=== PATIENT | male | born 1970 | race Caucasian/White ===

== ENCOUNTER 2017-01-10 11:36 | Emergency (ER) | payer OTHER ==
[~2017-01-10] VITALS: Ht 188 cm; Wt 109.8 kg
[2017-01-10] MEDS ORDERED: MELO15TA4 PO (11:45)
[2017-01-10] MEDS ORDERED: VIAG100T PO (11:45)
[2017-01-10] MEDS ORDERED: PRED20TA PO (12:56)
[2017-01-10] MEDS ORDERED: BENA25TA9 PO (12:56)
[2017-01-10 13:08] VITALS: BP 122/77
[2017-01-11] MEDS ORDERED: PRED20TA PO (19:52)
--- NOTE | 2017-01-13 15:50 | ED PDOC ---
Post-Departure Follow-Up no PCP - radiology report - certified letter sent Chetna Castillo MD January 13, 2017 15:50
== END 2017-01-10 13:11 | disposition home or self-care (01) ==
LOC: M ED 13:06
DX: T78.40XA Allergy, unspecified, initial encounter (principal); X58.XXXA Exposure to other specified factors, initial encounter; Y92.89 Other specified places as the place of occurrence of the external cause; Y93.89 Activity, other specified; Y99.8 Other external cause status; Z79.899 Other long term (current) drug therapy

== ENCOUNTER 2017-01-11 15:55 | Emergency (ER) | payer OTHER ==
[~2017-01-11] VITALS: Ht 188 cm; Wt 110.2 kg
[~2017-01-11 15:55] MED LIST: BENA25TA9 PO; MELO15TA4 PO; PRED20TA PO; VIAG100T PO
[2017-01-11] MEDS ORDERED: diphenhydrAMINE INJ 50MG/ML VIAL (J1200) IV ONE (16:45)
[2017-01-11] MEDS ORDERED: methylPREDNISolone INJ 125 MG/2 ML VIAL (J2930) IV ONE (16:45)
[2017-01-11] MEDS ORDERED: FAMOTIDINE INJ 20MG/2ML VIAL (S0028) IVP ONE (16:45)
[2017-01-11 17:22] LABS: BASO % 0.5 % (0.0-1.0); EOS # 0.1 K/mm3 (0.0-0.50); EOS % 1.1 % (0.0-3.0); LARGE UNSTAINED CELL # 0.1 K/mm3 (0.0-0.4); LARGE UNSTAINED CELL % 1.7 % (0.0-4.0); LYMPH # 1.5 K/mm3 (1.5-4.5); MEAN CORPUSCULAR HEMOGLOBIN 31.8 pg (27.0-33.0); MEAN CORPUSCULAR HGB CONC 35.4 g/dl (32.0-36.5); MEAN CORPUSCULAR VOLUME 89.9 fl (80.0-96.0); MONO # 0.4 K/mm3 (0.0-0.8); MONO % 5.2 % (0.0-5.0); NEUTROPHILS # 5.1 K/mm3 (1.8-7.7); NEUTROPHILS % 70.5 % (36.0-66.0); PLATELET COUNT, AUTOMATED 158 k/mm3 (150-450); RED CELL DISTRIBUTION WIDTH 11.8 % (11.5-14.5); WHITE BLOOD COUNT 7.2 K/mm3 (4.0-10.0)
[2017-01-11 17:38] LABS: ANION GAP 8 MEQ/L (8-16); BLOOD UREA NITROGEN 12 MG/DL (7-18); CARBON DIOXIDE LEVEL 25 MEQ/L (21-32); CHLORIDE LEVEL 103 MEQ/L (98-107); CREATININE FOR GFR 0.96 MG/DL (0.70-1.30); GLOMERULAR FILTRATION RATE > 60.0 (>60); GLUCOSE, FASTING 100 MG/DL (70-105); POTASSIUM SERUM 3.8 MEQ/L (3.5-5.1); SODIUM LEVEL 136 MEQ/L (136-145)
[2017-01-11 17:41] LABS: ALBUMIN 3.6 GM/DL (3.2-5.2); ALBUMIN/GLOBULIN RATIO 1.03 (1.00-1.93); BILIRUBIN,DIRECT 0.2 MG/DL (0.0-0.2); BILIRUBIN,TOTAL 1.3 MG/DL (0.2-1.0); TOTAL PROTEIN 7.1 GM/DL (6.4-8.2)
[2017-01-11] MEDS ORDERED: diphenhydrAMINE INJ 50MG/ML VIAL (J1200) IV STA (18:51)
[2017-01-11] MEDS ORDERED: ISOVUE-370 76% 100ML VIAL (Q9967) As Ordered ONE (18:54)
[2017-01-11] MEDS ORDERED: PRED20TA PO (19:52)
[2017-01-11 20:08] VITALS: BP 142/83
--- NOTE | 2017-01-12 04:39 | REP ---
Clinical: Chest pain and shortness of breath. Technique: Axial contrast enhanced images from the thoracic inlet to the upper abdomen using 100 ml Isovue 370 intravenous contrast material with multiplanar re-formations. Findings: Satisfactory enhancement of the pulmonary vasculature is achieved and no filling defects are identified to suggest pulmonary embolus. Further evaluation of the mediastinum demonstrates normal thoracic aorta, heart and pericardium. Mild bibasilar atelectasis noted without focal consolidation, effusion or pneumothorax. Tracheobronchial tree is patent. No obvious nodule or mass lesion is identified. Prominent mediastinal lymph nodes noted with right hilar lymph node up to 18 mm short axis diameter. Surrounding musculoskeletal structures intact Impression: 1. No evidence for pulmonary embolus. 2. Mild bibasilar atelectasis and mild prominent mediastinal/right hilar adenopathy may warrant follow-up examination at 3-6 months. Signed by Beka Navarrete MD 01/12/2017 04:30 A
--- NOTE | 2017-01-12 09:51 | REP ---
CHEST, TWO VIEWS: HISTORY: Cough. COMPARISON: 12/13/2013 The lungs are clear. The heart is normal in size. The pulmonary vasculature is normal in appearance. The bony structure is intact. IMPRESSION: No acute disease. Signed by Robbie Porter MD 01/12/2017 09:55 A
--- NOTE | 2017-01-13 05:50 | ECGEPIP ---
Stationary ECG Study [facility] - ED Test Date: 2017-01-11 Pat Name: BEN DELGADO Department: Room: - Gender: M Nurse Practitioner Hospitalist: ken : 1970 Requested By: JYOTHI Martinez Order Number: [id number] Reading MD: Anish Craven Measurements Intervals [place] Rate: 86 P: 37 ME: 156 QRS: 9 QRSD: 86 T: 29 QT: 334 QTc: 401 Interpretive Statements SINUS RHYTHM WITH OCCASIONAL VENTRICULAR PREMATURE COMPLEXES NO PRIORS Electronically Signed On 01-13-2017 5:50:16 EDT by Anish Craven
== END 2017-01-11 20:36 | disposition home or self-care (01) ==
LOC: M ED 16:39
DX: T50.B95A Adverse effect of other viral vaccines, initial encounter (principal); X58.XXXA Exposure to other specified factors, initial encounter; Y92.89 Other specified places as the place of occurrence of the external cause; Y93.89 Activity, other specified; Y99.8 Other external cause status; Z79.52 Long term (current) use of systemic steroids; Z79.899 Other long term (current) drug therapy
CPT/HCPCS: 36415; 71020; 71275; 80048; 80076; 82550; 82553; 85025; 85379; 93005; 93041; 94760; 96374; 96375; 96376; 99285; J1200; J2930; Q9967

== ENCOUNTER 2018-03-13 22:46 | Emergency (ER) | payer OTHER ==
[2018-03-14] MEDS: LIDOCAINE 2% MDV 20 ML VIAL SC (00:19)
== END 2018-03-14 00:30 | disposition home or self-care (01) ==
LOC: M ED 22:46
DX: S91.115A Laceration without foreign body of left lesser toe(s) without damage to nail, initial encounter (principal); W22.8XXA Striking against or struck by other objects, initial encounter; Y92.098 Other place in other non-institutional residence as the place of occurrence of the external cause
CPT/HCPCS: 12001

== ENCOUNTER 2019-02-25 10:00 | Emergency (ER) | payer OTHER ==
[~2019-02-25] VITALS: Ht 188 cm; Wt 110.2 kg
[2019-02-25 10:00] VITALS: BP 121/77
[~2019-02-25 10:00] MED LIST changes: +BENA25TA10 PO; -BENA25TA9 PO; +MELO15TA28 PO; -MELO15TA4 PO
[2019-02-25] MEDS ORDERED: dayquil (10:05)
[2019-02-25] MEDS ORDERED: CLEO300C2 PO (10:13)
== END 2019-02-25 10:19 | disposition home or self-care (01) ==
LOC: M ED 10:00
DX: L03.111 Cellulitis of right axilla (principal); Z79.1 Long term (current) use of non-steroidal anti-inflammatories (NSAID)

== ENCOUNTER 2019-02-27 06:14 | Inpatient (IN) | payer OTHER ==
[~2019-02-27] VITALS: Ht 188 cm; Wt 109.5 kg
[~2019-02-27 06:14] MED LIST changes: +CLEO300C2 PO; +dayquil
[2019-02-27] MEDS ORDERED: ACET-683 PO (06:22)
[2019-02-27] MEDS ORDERED: IBUP80TA PO ×2 (06:22→09:47)
[2019-02-27] MEDS ORDERED: RA M10TA PO (06:22)
[2019-02-27] MEDS ORDERED: VANCOMYCIN HCL 1,000 MG, VIAL MATE ADAPTER 1 EACH in D5W 250 ML IV ONE (07:00)
[2019-02-27] MEDS ORDERED: IBUPROFEN 800 MG TAB PO ONE (07:00)
[2019-02-27] MEDS ORDERED: LIDOCAINE 1% MDV 20ML VIAL IM ONE (07:00)
[2019-02-27 07:32] LABS: BASO # 0.1 10^3/uL (0.0-0.2); BASO % 0.5 % (0.0-1.0); EOS # 0.1 10^3/uL (0.0-0.50); HEMATOCRIT 40.6 % (42.0-52.0); HEMOGLOBIN 14.2 g/dl (13.5-17.5); LYMPH # 1.6 10^3/uL (1.5-4.5); LYMPH % 12.6 % (24.0-44.0); MEAN CORPUSCULAR HEMOGLOBIN 32.2 pg (27.0-33.0); MEAN CORPUSCULAR VOLUME 92.1 fl (80.0-96.0); MONO # 1.5 10^3/uL (0.0-0.8); MONO % 11.3 % (0.0-5.0); NEUTROPHILS # 9.6 10^3/uL (1.8-7.7); NEUTROPHILS % 74.2 % (36.0-66.0); PLATELET COUNT, AUTOMATED 195 10^3/uL (150-450); RED BLOOD COUNT 4.41 10^6/uL (4.30-6.10); WHITE BLOOD COUNT 12.9 10^3/uL (4.0-10.0)
[2019-02-27 07:55] LABS: BLOOD UREA NITROGEN 16 MG/DL (7-18); CALCIUM LEVEL 8.5 MG/DL (8.5-10.1); CARBON DIOXIDE LEVEL 27 MEQ/L (21-32); CHLORIDE LEVEL 107 MEQ/L (98-107); CREATININE FOR GFR 1.02 MG/DL (0.70-1.30); GLOMERULAR FILTRATION RATE > 60.0 (>60); GLUCOSE, FASTING 106 MG/DL (70-100); POTASSIUM SERUM 4.2 MEQ/L (3.5-5.1); SODIUM LEVEL 137 MEQ/L (136-145)
[2019-02-27] MEDS ORDERED: ONDANSETRON 4MG/2ML VIAL (J2405) IV ONE (08:15)
[2019-02-27] MEDS ORDERED: MORPHINE 4 MG/ML 1ML VIAL/SYRINGE (J2270) IV PRN (08:15)
[2019-02-27] MEDS ORDERED: ACET-839 PO (09:47)
[2019-02-27] MEDS ORDERED: CLEO300C2 PO (09:47)
[2019-02-27] MEDS ORDERED: MELA10TA2 PO (09:49)
[2019-02-27] MEDS ORDERED: MELA10CA PO (09:50)
[2019-02-27] MEDS ORDERED: LOPE1CAP5 PO (09:51)
--- NOTE | 2019-02-27 10:55 | HPEPDOC ---
General Date of Admission 02/27/2019 Date of Service: Feb 27, 2019 Attending Physician: FAM MARTINEZ MD Chief Complaint The patient is a 48-year-old male admitted with a reason for visit of Abscess Left Arm. History of Present Illness 48 years old male with no past medical history presented with swelling and abscess of left arm. He had come to ER 2 days ago was started on clindamycin but did not improve and found a hurry follow smelling discharge on his bed sheet and decided to come back. There is being admitted for IV antibiotics after I&D was performed Home Medications Scheduled Clindamycin Hcl (Cleocin HCl) 300 Mg Capsule, 300 MG PO TID, (Reported) STARTED 02/25/19 X 10 DAYS Melatonin (Melatonin) 10 Mg Capsule, 10 MG PO QHS, (Reported) Scheduled PRN Acetaminophen (Acetaminophen) 500 Mg Tablet, 1,000 MG PO Q6H PRN for PAIN, ( Reported) Ibuprofen (Ibuprofen) 800 Mg Tablet, 800 MG PO TID PRN for PAIN, (Reported) Loperamide HCl (Loperamide) 2 Mg Capsule, 2 MG PO PRN PRN for DIARRHEA, (Reported) Allergies Coded Allergies: erythromycin base (Verified Adverse Reaction, Intermediate, " lethargy", 02/25/19) Past Medical History Medical History None Surgical History None Family History Significant Family History: No pertinent family hx Social History * Smoker: Denies Alcohol: Denies Drugs: denies A-FIB/CHADSVASC A-FIB History Current/History of A-Fib/PAF?: No Review of Systems Constitutional: Reports: Fever Eyes: Denies: Pain, Vision change, Conjunctivae inflammation, Eyelid inflammation, Redness, Other ENT: Denies: Head Aches, Ear Pain, Dysphagia, Sinus Congestion, Post Nasal Drip, Sore Throat, Epistaxis, Other Symptoms Skin: Reports: Other (left axilla abscess) Pulmonary: Denies: Dyspnea, Cough, Pleuritic Chest Pain, Other Symptoms Cardiovascular: Denies: Chest Pain, Palpitations, Orthopnea, Paroxysmal Noc. Dyspnea, Edema, Lt Headedness, Other Symptoms Gastrointestinal: Denies: Nausea, Vomiting, Abdominal Pain, Diarrhea, Cons tipation, Melena, Hematochezia, Other Symptoms Genitourinary: Denies: Dysuria, Frequency, Incontinence, Hematuria, Retention, Other Symptoms Hematologic: Denies: Bruising, Bleeding Excessively, Petecchia, Purpura, Enlarged Lymph Nodes, Other Hematologic Endocrine: Denies: Polydipsia, Polyphagia, Polyuria, Heat Intolerance, Cold Intolerance, Other Endocrine Sx Musculoskeletal: Denies: Neck Pain, Back Pain, Shoulder Pain, Arm Pain, Hand Pain, Leg Pain, Foot Pain, Joint Pain, Muscle Pain, Spasms, Other Symptoms Neurological: Denies: Weakness, Numbness, Incoordination, Change in speech, Confusion, Seizures, Other Symptoms Psych: Denies: Mood Normal, Anxiety, Depression, Memory Issues, Thoughts of Self Harm, Anger, Thoughts of Harming Other, Other Psych Physical Examination General Exam: Positive: Alert, Cooperative Eye Exam: Positive: PERRLA ENT Exam: Positive: Atraumatic, Mucous membr. moist/pink Neck Exam: Positive: Supple Chest Exam: Positive: Clear to auscultation, Normal air movement Heart Exam: Positive: Rate Normal, Normal S1, Normal S2 Abdomen Exam: Positive: Normal bowel sounds, Soft Skin Exam: Positive: Nl turgor and temperature Neuro Exam: Positive: Normal Speech, Cranial Nerves 3-12 NL, Reflexes 2+ Psych Exam: Positive: Mental status NL, Mood NL, Oriented x 3 Vital Signs Vital Signs Date Time Temp Pulse Resp B/P (MAP) Pulse Ox O2 Delivery O2 Flow Rate FiO2 02/27/19 08:20 15 02/27/19 06:41 02/27/19 06:16 100.4 89 95 Room Air Laboratory Data Labs 24H Laboratory Tests 2 02/27/19 07:19: Immature Granulocyte % (Auto) 0.4, White Blood Count 12.9H, Red Blood Count 4.41, Hemoglobin 14.2, Hematocrit 40.6L, Mean Corpuscular Volume 92.1, Mean Corpuscular Hemoglobin 32.2, Mean Corpuscular Hemoglobin Concent 35.0, Red Cell Distribution Width 11.9, Platelet Count 195, Neutrophils (%) (Auto) 74.2H, Lymphocytes (%) (Auto) 12.6L, Monocytes (%) (Auto) 11.3H, Eosinophils (%) (Auto) 1.0, Basophils (%) (Auto) 0.5, Neutrophils # (Auto) 9.6H, Lymphocytes # (Auto) 1.6, Monocytes # (Auto) 1.5H, Eosinophils # (Auto) 0.1, Basophils # (Auto) 0.1, Nucleated Red Blood Cells % (auto) 0.0, Anion Gap 3L, Glomerular Filtration Rate > 60.0, Lactic Acid Level 1.0, Blood Urea Nitrogen 16, Creatinine 1.02, Sodium Level 137, Potassium Level 4.2, Chloride Level 107, Carbon Dioxide Level 27, Calcium Level 8.5 CBC/BMP Laboratory Tests 02/27/19 07:19 Red Blood Count 4.41, Mean Corpuscular Volume 92.1, Mean Corpuscular Hemoglobin 32.2, Mean Corpuscular Hemoglobin Concent 35.0, Red Cell Distribution Width 11.9, Neutrophils (%) (Auto) 74.2 H, Lymphocytes (%) (Auto) 12.6 L, Monocytes (%) (Auto) 11.3 H, Eosinophils (%) (Auto) 1.0, Basophils (%) (Auto) 0.5, Neutrophils # (Auto) 9.6 H, Lymphocytes # (Auto) 1.6, Monocytes # (Auto) 1.5 H, Eosinophils # (Auto) 0.1, Basophils # (Auto) 0.1, Calcium Level 8.5 Microbiology Microbiology 02/27/19 Blood Culture, Received Pending 02/27/19 Gram Stain - Final, Resulted 02/27/19 Wound Culture, Resulted Pending Problems (1) Cellulitis of right axilla Status: Acute Problem Text: Admit to [facility] floor Patient had I&D done ED Discharge sent for cultures. Please follow cultures. Once available Will start patient on ceftroline 600 mg IV every 12 hours for broad-spectrum coverage , Tylenol and Percocet when necessary for pain DVT prophylaxis with Lovenox Monitor clinical course (2) Abscess Status: Acute Plan / VTE VTE Prophylaxis Ordered?: Yes FAM MARTINEZ MD Feb 27, 2019 10:55
[2019-02-27] MEDS ORDERED: ENOXAPARIN 40 MG/0.4 ML SYRINGE (J1650) SC ONE (11:00)
[2019-02-27] MEDS ORDERED: CEFTAROLINE FOSAMIL 600 MG in D5W MINI-BAG PLUS 50 ML IV ONE (12:00)
[2019-02-27 13:09] VITALS: BP 117/69
[2019-02-27] MEDS: CEFTAROLINE FOSAMIL 600 MG in D5W MINI-BAG PLUS 50 ML IV SCH (14:35)
[2019-02-27 15:42] VITALS: BP 115/69
[2019-02-27] MEDS: ACETAMINOPHEN TAB 650MG DOSE (2X325MG) PO PRN (15:57)
[2019-02-27] MEDS ORDERED: IBUPROFEN 600 MG TAB PO PRN (19:15)
[2019-02-27 20:00] VITALS: BP 103/52
[2019-02-27] MEDS: PERCOCET 5MG/325MG TAB PO PRN (21:15)
[2019-02-28] VITALS: BP 116/59
[2019-02-28] MEDS: CEFTAROLINE FOSAMIL 600 MG in D5W MINI-BAG PLUS 50 ML IV SCH ×2 (02:16→14:54)
[2019-02-28 06:57] LABS: HEMATOCRIT 41.5 % (42.0-52.0); HEMOGLOBIN 14.1 g/dl (13.5-17.5); MEAN CORPUSCULAR HEMOGLOBIN 31.5 pg (27.0-33.0); MEAN CORPUSCULAR VOLUME 92.8 fl (80.0-96.0); PLATELET COUNT, AUTOMATED 190 10^3/uL (150-450); RED BLOOD COUNT 4.47 10^6/uL (4.30-6.10); WHITE BLOOD COUNT 10.6 10^3/uL (4.0-10.0)
[2019-02-28 07:22] LABS: ALBUMIN 3.2 GM/DL (3.2-5.2); ALT/SGPT 28 U/L (12-78); BLOOD UREA NITROGEN 11 MG/DL (7-18); CALCIUM LEVEL 9.2 MG/DL (8.5-10.1); CARBON DIOXIDE LEVEL 30 MEQ/L (21-32); CHLORIDE LEVEL 106 MEQ/L (98-107); CREATININE FOR GFR 1.06 MG/DL (0.70-1.30); GLOMERULAR FILTRATION RATE > 60.0 (>60); GLUCOSE, FASTING 94 MG/DL (70-100); POTASSIUM SERUM 4.6 MEQ/L (3.5-5.1); SODIUM LEVEL 139 MEQ/L (136-145)
[2019-02-28 08:00] VITALS: BP 114/62
[2019-02-28] MEDS: ENOXAPARIN 40 MG/0.4 ML SYRINGE (J1650) SC SCH (09:00)
[2019-02-28 13:46] VITALS: BP 121/77
[2019-02-28] MEDS: ACETAMINOPHEN TAB 650MG DOSE (2X325MG) PO PRN (17:47)
[2019-02-28 20:00] VITALS: BP 114/67
--- NOTE | 2019-02-28 20:06 | IPNPDOC ---
Text Note Date of Service The patient was seen on 02/28/19. NOTE Pt was seen and examined at bedside. dressing changed with RN. draining purulent discharge. Denies any fever, malaise, SOB, cough. Physical Examination General Exam: Positive: Alert, Cooperative Eye Exam: Positive: PERRLA ENT Exam: Positive: Atraumatic, Mucous membr. moist/pink Neck Exam: Positive: Supple Chest Exam: Positive: Clear to auscultation, Normal air movement Heart Exam: Positive: Rate Normal, Normal S1, Normal S2 Abdomen Exam: Positive: Normal bowel sounds, Soft Skin Exam: Positive: Nl turgor and temperature Neuro Exam: Positive: Normal Speech, Cranial Nerves 3-12 NL, Reflexes 2+ Psych Exam: Positive: Mental status NL, Mood NL, Oriented x 3 Vital Signs Date Time Temp Pulse Resp B/P (MAP) Pulse Ox O2 Delivery O2 Flow Rate FiO2 02/28/19 13:46 98.8 81 18 121/77 (92) 96 02/28/19 08:00 99.3 75 18 114/62 (79) 96 02/28/19 00:00 97.4 65 18 116/59 (78) 95 02/27/19 22:00 18 02/27/19 21:15 18 Intake & Output 02/28/19 06:00 Intake Total 1860 ml Output Total 1150 ml Balance 710 ml Laboratory Tests 02/28/19 06:45: White Blood Count 10.6H, Red Blood Count 4.47, Hemoglobin 14.1, Hematocrit 41.5L, Mean Corpuscular Volume 92.8, Mean Corpuscular Hemoglobin 31.5, Mean Corpuscular Hemoglobin Concent 34.0, Red Cell Distribution Width 12.0, Platelet Count 190, Nucleated Red Blood Cells % (auto) 0.0, Blood Urea Nitrogen 11, Crea tinine 1.06, Sodium Level 139, Potassium Level 4.6, Chloride Level 106, Carbon Dioxide Level 30, Calcium Level 9.2, Aspartate Amino Transf (AST/SGOT) 25, Alanine Aminotransferase (ALT/SGPT) 28, Alkaline Phosphatase 78, Total Bilirubin 1.0, Total Protein 7.0, Albumin 3.2, Anion Gap 3L, Glomerular Filtration Rate > 60.0, Fasting Glucose 94, Albumin/Globulin Ratio 0.84L Current Medications Medications (Trade) Dose Ordered Sig/Krysten Route PRN Reason Start Time Stop Time Status Last Admin Dose Admin Acetaminophen (Tylenol Tab) 650 mg Q4HP PRN PO PAIN / FEVER 02/27/19 11:00 02/28/19 17:47 650 MG Ceftaroline Fosamil 600 mg/ Dextrose 50 ml @ 50 mls/hr Q12H IV 02/27/19 14:00 02/28/19 14:54 50 MLS/HR Ibuprofen (Advil) 600 mg Q6HP PRN PO MODERATE PAIN (PS 5-7) 02/27/19 19:15 02/27/19 19:57 600 MG Oxycodone/ Acetaminophen (Percocet 5mg/ 325mg Tablet) 1 tab Q4HP PRN PO PAIN OR DISCOMFORT 02/27/19 11:00 02/27/19 21:15 1 TAB A/P S/P Iand D of Rt Axillary abscess Cont Cefaroline for today Consider switch to PO, DC in AM f/u out pt wound care at home VS,Fishbone, I+O VS, Fishbone, I+O Laboratory Tests 02/28/19 06:45 Red Blood Count 4.47, Mean Corpuscular Volume 92.8, Mean Corpuscular Hemoglobin 31.5, Mean Corpuscular Hemoglobin Concent 34.0, Red Cell Distribution Width 12.0, Calcium Level 9.2, Aspartate Amino Transf (AST/SGOT) 25, Alanine Aminotransferase (ALT/SGPT) 28, Alkaline Phosphatase 78, Total Bilirubin 1.0, Total Protein 7.0, Albumin 3.2 Vital Signs Date Time Temp Pulse Resp B/P (MAP) Pulse Ox O2 Delivery O2 Flow Rate FiO2 02/28/19 13:46 98.8 81 18 121/77 (92) 96 02/27/19 11:50 Room Air I&O- Last 24 Hours up to 6 AM 02/28/19 06:00 Intake Total 1860 ml Output Total 1150 ml Balance 710 ml RAVI LLAMAS MD Feb 28, 2019 20:06
[2019-02-28] MEDS: PERCOCET 5MG/325MG TAB PO PRN (22:56)
[2019-03-01] MEDS: CEFTAROLINE FOSAMIL 600 MG in D5W MINI-BAG PLUS 50 ML IV SCH ×2 (02:50→13:29)
[2019-03-01 04:00] VITALS: BP 124/78
[2019-03-01 08:00] VITALS: BP 138/85
[2019-03-01] MEDS: ENOXAPARIN 40 MG/0.4 ML SYRINGE (J1650) SC SCH (09:00)
[2019-03-01 16:00] VITALS: BP 145/86
--- NOTE | 2019-03-01 19:29 | IPNPDOC ---
Date Seen The patient was seen on 03/01/19. Progress Note SUBJECTIVE: Patient reported feeling better today. Had been afebrile overnight. R. axilla still actively draining. Patient concern that there are 2 areas that had not improved that was not evacuated fully. Surgery consulted for evaluation. OBJECTIVE PHYSICAL EXAMINATION: VITAL SIGNS: Please see below. General: No acute distress, Alert Eyes: Normal sclera, EOMI, ARNULFO HENT: Atraumatic, neck supple, moist mucous membranes Cardiovascular: Normal rate, normal rhythm. No murmurs appreciated. Pulmonary: Clear to auscultation b/l, no wheezing GI: Soft, nontender, nondistended Skin: Warm and dry. r. axilla with large area of erythema and induration. One area of active purulent drainage. Neuro: CN grossly intact. No focal deficits. Strengths equal b/l. Psych: oriented x 3 LABORATORY DATA, IMAGING STUDIES, MICROBIOLOGY: Please see below. ASSESSMENT AND PLAN: 1. R. Axillary abscess - Still actively draining and induration. - Surgery consulted for evaluation. - Wound culture + s. aureus. - Will transition to PO prior to discharge. VS, I&O, 24H, Fishbone Vital Signs/I&O Vital Signs Date Time Temp Pulse Resp B/P (MAP) Pulse Ox O2 Delivery O2 Flow Rate FiO2 03/01/19 16:00 97.3 81 18 145/86 (105) 97 02/27/19 11:50 Room Air I&O- Last 24 Hours up to 6 AM 03/01/19 06:00 Intake Total 2020 ml Output Total 400 ml Balance 1620 ml Laboratory Data Microbiology Microbiology 02/27/19 Blood Culture - Preliminary, Resulted No Growth after 48 hours. All Specime... 02/27/19 Gram Stain - Final, Complete 02/27/19 Wound Culture - Final, Complete Staphylococcus Aureus DARWIN BUSCH MD Mar 01, 2019 19:29
[2019-03-01 20:00] VITALS: BP 132/71
[2019-03-02 02:00] VITALS: BP 105/54
[2019-03-02] MEDS: CEFTAROLINE FOSAMIL 600 MG in D5W MINI-BAG PLUS 50 ML IV SCH (02:30)
[2019-03-02 06:57] LABS: HEMATOCRIT 42.4 % (42.0-52.0); HEMOGLOBIN 14.3 g/dl (13.5-17.5); MEAN CORPUSCULAR HEMOGLOBIN 30.6 pg (27.0-33.0); MEAN CORPUSCULAR HGB CONC 33.7 g/dl (32.0-36.5); MEAN CORPUSCULAR VOLUME 90.8 fl (80.0-96.0); PLATELET COUNT, AUTOMATED 245 10^3/uL (150-450); RED BLOOD COUNT 4.67 10^6/uL (4.30-6.10); WHITE BLOOD COUNT 8.3 10^3/uL (4.0-10.0)
[2019-03-02] MEDS ORDERED: LIDOCAINE 1% SDV 5 ML VIAL As Ordered ONE (07:39)
[2019-03-02 08:00] VITALS: BP 131/68
[2019-03-02] MEDS ORDERED: LIDOCAINE 1% SDV 5 ML VIAL SC ONE (08:30)
[2019-03-02] MEDS: ENOXAPARIN 40 MG/0.4 ML SYRINGE (J1650) SC SCH (09:00)
[2019-03-02] MEDS ORDERED: BACT800T5 PO (11:04)
--- NOTE | 2019-03-02 14:38 | DS.PDOC ---
Discharge Summary General Date of Admission Feb 27, 2019 at 10:43 Date of Discharge 03/02/19 Discharge Summary PROCEDURES PERFORMED DURING STAY: [None]. ADMITTING DIAGNOSES: 1. R. axillary abscess DISCHARGE DIAGNOSES: 1. R. axillary abscess COMPLICATIONS/CHIEF COMPLAINT: Cellulitis Of Rt Axilla. HISTORY OF PRESENT ILLNESS: "48 years old male with no past medical history presented with swelling and ab scess of left arm. He had come to ER 2 days ago was started on clindamycin but did not improve and found a hurry follow smelling discharge on his bed sheet and decided to come back. There is being admitted for IV antibiotics after I&D was performed" HOSPITAL COURSE: Patient had initial I&D in ER follow by subsequent I&D by surgery this morning. Clinically improving on antibiotics with continued drainage from abscess. Wound culture + staph aureus sensitive to Bactrim. Plan to discharge patient home to complete course of Abx and follow up with PMD as well as general surgery next week. Patient had no complaints, instructions on dressing changes were given by nurse. DISCHARGE MEDICATIONS: Please see below. ALLERGIES: Please see below. PHYSICAL EXAMINATION ON DISCHARGE: VITAL SIGNS: Please see below. General: No acute distress, Alert Eyes: Normal sclera, EOMI, ARNULFO HENT: Atraumatic, neck supple, moist mucous membranes Cardiovascular: Normal rate, normal rhythm. No murmurs appreciated. Pulmonary: Clear to auscultation b/l, no wheezing GI: Soft, nontender, nondistended Skin: Warm and dry. r. axilla with large indurated area, improved. Bloody drainage noted to semi-saturate dressing. Neuro: CN grossly intact. No focal deficits. Strengths equal b/l. Psych: oriented x 3 LABORATORY DATA: Please see below. ACTIVITY: [As tolerated]. DIET: Regular diet DISCHARGE PLAN: Complete course of antibiotics f/u with PMD and general surgery Continue daily dressing change DISPOSITION: 01 Home, Self-Care. DISCHARGE INSTRUCTIONS: Complete course of antibiotics f/u with PMD and general surgery Continue daily dressing change ITEMS TO FOLLOWUP ON ON OUTPATIENT: None DISCHARGE CONDITION: [Stable]. TIME SPENT ON DISCHARGE: 32 minutes. Vital Signs/I&Os Vital Signs Date Time Temp Pulse Resp B/P (MAP) Pulse Ox O2 Delivery O2 Flow Rate FiO2 03/02/19 08:00 98.2 66 18 131/68 (89) 96 02/27/19 11:50 Room Air I&O- Last 24 Hours up to 6 AM 03/02/19 06:00 Intake Total 3120 ml Output Total 600 ml Balance 2520 ml Laboratory Data Labs 24H Laboratory Tests 2 03/02/19 06:20: Nucleated Red Blood Cells % (auto) 0.0 CBC/BMP Laboratory Tests 03/02/19 06:20 Red Blood Count 4.67, Mean Corpuscular Volume 90.8, Mean Corpuscular Hemoglobin 30.6, Mean Corpuscular Hemoglobin Concent 33.7, Red Cell Distribution Width 11.9 Microbiology Microbiology 02/27/19 Blood Culture - Preliminary, Resulted No Growth after 72 hours. All specime... 02/27/19 Gram Stain - Final, Complete 02/27/19 Wound Culture - Final, Complete Staphylococcus Aureus Discharge Medications Scheduled Melatonin (Melatonin) 10 Mg Capsule, 10 MG PO QHS, (Reported) Sulfamethoxazole/Trimethoprim (Bactrim Ds Tablet) 1 Each Tablet, 1 TAB PO BID Scheduled PRN Acetaminophen (Acetaminophen) 500 Mg Tablet, 1,000 MG PO Q6H PRN for PAIN, (Reported) Ibuprofen (Ibuprofen) 800 Mg Tablet, 800 MG PO TID PRN for PAIN, (Reported) Loperamide HCl (Loperamide) 2 Mg Capsule, 2 MG PO PRN PRN for DIARRHEA, (Reported) Allergies Coded Allergies: erythromycin base (Verified Adverse Reaction, Intermediate, " lethargy", 02/25/19) DARWIN BUSCH MD Mar 02, 2019 14:38
--- NOTE | 2019-03-04 19:16 | CR ---
DATE OF CONSULTATION: REASON FOR CONSULTATION: Right axillary abscess. HISTORY OF PRESENT ILLNESS: Patient is a 48-year-old male who presented to the emergency room (ER) with complaints of a right axillary abscess that started off about a week ago. He went into the ER a couple days ago and was started on clindamycin, but he had no improvement. Still had a large amount of swelling and started to have some foul-smelling drainage from the right axilla, so he came back into the ER on the for re-evaluation. When he came in, he was started on intravenous (IV) antibiotics. There was a small slight incision and drainage (I and D) completed in the ER, and he was admitted to the floor for evaluation. Over the past few days, his labs have improved, but he still having copious amounts of drainage and a lot of swelling under the arm, so I was called to evaluate prior to them discharging him home. Other than the continued swelling and drainage, he has no complaints. Denies fevers or chills. No nausea or vomiting. No problems with diet or bowel movements. He has never had any abscess like this in the past. Says it came on suddenly. No trauma to the area. No recent bug bites or infections in the area that he is aware of. PAST MEDICAL HISTORY: None. PAST SURGICAL HISTORY: None. ALLERGIES: ERYTHROMYCIN MEDICATIONS: Please see medication reconciliation. SOCIAL HISTORY: Denies drug, alcohol, tobacco abuse. FAMILY HISTORY: Noncontributory. REVIEW OF SYSTEMS: Pertinent positives and negatives stated in the history of present illness (HPI). PHYSICAL EXAMINATION: GENERAL: Alert and oriented times three. No acute distress. VITAL SIGNS: Temperature 98.9, pulse 57, respirations 18, blood pressure 105/54, pulse oximetry 100% on room air. HEENT: Pupils equally round and reactive to light and accommodation. HEART: S1, S2, regular rate and rhythm. LUNGS: Clear to auscultation bilaterally. ABDOMEN: Soft, nontender, nondistended. SKIN: Under the right axilla there is a large, inflamed, indurated area, approximately 3 x 5 cm in size. A slight amount of fluctuance. Toward the lateral posterior edge of this axilla, there is about a 3 mm opening that is oozing purulent fluid. LABORATORY DATA White count is 8.3, down from 10.6 yesterday, hemoglobin 14.3, platelets 245. ASSESSMENT AND PLAN: Patient is a 48-year-old male with a right axillary abscess. Failed outpatient treatment. Currently actively draining and has responded to IV antibiotics. There is a small opening, and it is actively draining; however, I did recommend to him that he would improve quicker if we opened the hole a little bit and allowed it to drain faster. My recommendation was to proceed with an incision and drainage right at the bedside. He understood and agreed to the procedure. He signed consent, and we did the procedure right at the bedside. Nurses read through the bedside protocol. We signed that form as well. I elevated the right arm behind his head, rubbed down the axilla with a little bit of Betadine. Using 1% lidocaine, injected about 3 mL into the skin and subcutaneous tissue circumferentially around the opening, where it was already actively draining. Once that was completed, using an 11-blade scalpel I was able to make a cruciate incision through the previous opening that was already there, irrigated it out with about 20 mL of normal saline, and then covered the area with some 4 x 4's and an ABD, ending the procedure. Once that was completed, I told the patient and the primary that he was stable to be discharged home. Continue with dressing changes at least once if not twice a day. Continue with by mouth antibiotics, and he can followup with me in the office in about a week if needed to re-evaluate.
== END 2019-03-02 12:45 | disposition home or self-care (01) | DRG 603 ==
LOC: M ED 06:14 → M ED INP 10:43 → M PED 12:10
PROVIDERS: ADMIT Internal Medicine; ATTEND Student in an Organized Health Care Education/Training Program
DX: L03.111 Cellulitis of right axilla (principal); Z88.1 Allergy status to other antibiotic agents; Z79.899 Other long term (current) drug therapy

== ENCOUNTER 2021-01-14 14:32 | Emergency (ER) | payer OTHER ==
[~2021-01-14] VITALS: Ht 188 cm; Wt 112.3 kg
[~2021-01-14 14:32] MED LIST changes: +ACET-683 PO; +ACET-839 PO; +BACT800T5 PO; +IBUP80TA PO; +LOPE1CAP5 PO; +MELA10CA PO; +MELA10TA2 PO; +RA M10TA PO
[2021-01-14] MEDS ORDERED: DERMABOND TOPICAL SKIN ADHESIVE TOP ONE (17:05)
[2021-01-14 17:10] VITALS: BP 112/76
== END 2021-01-14 17:14 | disposition home or self-care (01) ==
LOC: M ED 14:32
DX: S01.81XA Laceration without foreign body of other part of head, initial encounter (principal); W22.8XXA Striking against or struck by other objects, initial encounter; Y92.019 Unspecified place in single-family (private) house as the place of occurrence of the external cause; Y93.9 Activity, unspecified; Y99.9 Unspecified external cause status; Z79.84 Long term (current) use of oral hypoglycemic drugs; Z79.899 Other long term (current) drug therapy

== ENCOUNTER 2023-02-04 23:23 | Emergency (ER) | payer OTHER ==
[~2023-02-04] VITALS: Ht 188 cm; Wt 128.3 kg
[2023-02-05 00:47] LABS: BASO # 0.1 10^3/uL (0.0-0.2); EOS # 0.2 10^3/uL (0.0-0.5); EOS % 1.8 % (0.0-3.0); HEMATOCRIT 42.3 % (42.0-52.0); LYMPH # 2.7 10^3/uL (1.5-5.0); LYMPH % 32.5 % (24.0-44.0); MEAN CORPUSCULAR HEMOGLOBIN 31.4 pg (27.0-33.0); MEAN CORPUSCULAR HGB CONC 35.5 g/dl (32.0-36.5); MEAN CORPUSCULAR VOLUME 88.5 fl (80.0-96.0); MONO % 12.1 % (2.0-8.0); NEUTROPHILS # 4.3 10^3/uL (1.5-8.5); NEUTROPHILS % 52.4 % (36.0-66.0); PLATELET COUNT, AUTOMATED 217 10^3/uL (150-450); RED BLOOD COUNT 4.78 10^6/uL (4.30-6.10); WHITE BLOOD COUNT 8.2 10^3/uL (4.0-10.0)
[2023-02-05 01:01] LABS: CK-MB VALUE MASS < 1.0 NG/ML (<3.6)
[2023-02-05 01:02] LABS: BLOOD UREA NITROGEN 17 MG/DL (9-23); CALCIUM LEVEL 9.3 MG/DL (8.5-10.1); CARBON DIOXIDE LEVEL 25 MMOL/L (20-31); CHLORIDE LEVEL 107 MMOL/L (98-107); CREATININE FOR GFR 1.02 MG/DL (0.70-1.30); GLOMERULAR FILTRATION RATE > 60.0 (>56); GLUCOSE, FASTING 112 MG/DL (60-100); MAGNESIUM LEVEL 1.7 MG/DL (1.8-2.4); POTASSIUM SERUM 3.9 MMOL/L (3.5-5.1); SODIUM LEVEL 140 MMOL/L (136-145)
[2023-02-05 01:05] LABS: FREE T4 1.05 NG/DL (0.89-1.76)
[2023-02-05 01:10] LABS: CPK CREATINE PHOSPHOKINASE 103 U/L (46-171); MB/CK RELATIVE INDEX 0.97 (< OR =4)
[2023-02-05] MEDS ORDERED: WELLTAB38 PO (01:18)
[2023-02-05] MEDS ORDERED: ZOLO25TA PO (01:18)
[2023-02-05] MEDS ORDERED: GABA-283 PO (01:18)
[2023-02-05 02:15] LABS: CK-MB VALUE MASS < 1.0 NG/ML (<3.6)
[2023-02-05 02:16] LABS: CPK CREATINE PHOSPHOKINASE 93 U/L (46-171); MB/CK RELATIVE INDEX 1.07 (< OR =4)
[2023-02-05 03:00] VITALS: BP 114/68
== END 2023-02-05 03:36 | disposition home or self-care (01) ==
LOC: M ED 23:23
DX: R07.9 Chest pain, unspecified (principal); F41.9 Anxiety disorder, unspecified; F32.A Depression, unspecified; Z88.1 Allergy status to other antibiotic agents; Z79.891 Long term (current) use of opiate analgesic; Z79.899 Other long term (current) drug therapy

== ENCOUNTER 2023-07-30 21:17 | Emergency (ER) | payer OTHER ==
[~2023-07-30] VITALS: Ht 188 cm; Wt 120.5 kg
[~2023-07-30 21:17] MED LIST changes: +GABA-284 PO; +WELLTAB38 PO; +ZOLO25TA PO
[2023-07-30] MEDS ORDERED: ATOR1TAB21 (21:32)
[2023-07-30 22:33] LABS: BASO # 0.1 10^3/uL (0.0-0.2); BASO % 0.7 % (0.0-1.0); EOS % 0.4 % (0.0-3.0); HEMATOCRIT 43.3 % (42.0-52.0); HEMOGLOBIN 15.4 g/dl (13.5-17.5); LYMPH # 2.4 10^3/uL (1.5-5.0); LYMPH % 29.3 % (24.0-44.0); MEAN CORPUSCULAR HEMOGLOBIN 31.3 pg (27.0-33.0); MEAN CORPUSCULAR HGB CONC 35.6 g/dl (32.0-36.5); MONO # 0.7 10^3/uL (0.0-0.8); MONO % 8.9 % (2.0-8.0); NEUTROPHILS # 4.9 10^3/uL (1.5-8.5); NEUTROPHILS % 60.5 % (36.0-66.0); PLATELET COUNT, AUTOMATED 212 10^3/uL (150-450); RED BLOOD COUNT 4.92 10^6/uL (4.30-6.10); WHITE BLOOD COUNT 8.1 10^3/uL (4.0-10.0)
[2023-07-30 23:04] LABS: LIPASE 31 U/L (12-53)
[2023-07-30 23:06] LABS: ALBUMIN 4.2 G/DL (3.2-5.2); ALKALINE PHOSPHATASE 96 U/L (46-116); ALT/SGPT 37 U/L (7.0-40); AST/SGOT 21 U/L (<34); BILIRUBIN,DIRECT 0.8 MG/DL (<0.4); BILIRUBIN,TOTAL 2.3 MG/DL (0.3-1.2); BLOOD UREA NITROGEN 13 MG/DL (9-23); CALCIUM LEVEL 9.5 MG/DL (8.5-10.1); CARBON DIOXIDE LEVEL 25 MMOL/L (20-31); CHLORIDE LEVEL 104 MMOL/L (98-107); CREATININE FOR GFR 0.98 MG/DL (0.70-1.30); GLOMERULAR FILTRATION RATE > 60.0 (>56); GLUCOSE, FASTING 104 MG/DL (60-100); SODIUM LEVEL 138 MMOL/L (136-145); TOTAL PROTEIN 7.2 G/DL (5.7-8.2)
[2023-07-30 23:09] LABS: CK-MB VALUE MASS < 1.0 NG/ML (<3.6)
[2023-07-30 23:17] LABS: CPK CREATINE PHOSPHOKINASE 100 U/L (46-171)
[2023-07-31] MEDS ORDERED: PANTOPRAZOLE 40MG TAB (PROTONIX) PO ONE (04:00)
[2023-07-31] MEDS ORDERED: FAMOTIDINE 20 MG TAB PO ONE (04:00)
[2023-07-31] MEDS ORDERED: SUCRALFATE 1 GM TAB PO ONE (04:00)
[2023-07-31 04:01] VITALS: BP 124/90; TEMP 98.3; O2SAT 96
[2023-07-31] MEDS ORDERED: CARA1TAB6 PO (04:01)
[2023-07-31] MEDS ORDERED: PEPC1TAB5 PO (04:01)
== END 2023-07-31 04:28 | disposition home or self-care (01) ==
LOC: M ED 21:17
DX: R07.89 Other chest pain (principal); K76.0 Fatty (change of) liver, not elsewhere classified; F41.1 Generalized anxiety disorder; Z88.1 Allergy status to other antibiotic agents; Z79.899 Other long term (current) drug therapy

== ENCOUNTER → 2024-02-26 | Outpatient (CLI) | payer OTHER ==
[~2024-02-26] MED LIST changes: +ATOR1TAB21; +CARA1TAB6 PO; +PEPC1TAB5 PO
== END ==
LOC: M SLEEP 20:00
PROVIDERS: ATTEND Physician Assistant
DX: G47.33 Obstructive sleep apnea (adult) (pediatric) (principal)

== ENCOUNTER 2024-12-11 11:37 | Emergency (ER) | payer OTHER ==
[~2024-12-11] VITALS: Ht 188 cm; Wt 121.1 kg
[2024-12-11] MEDS ORDERED: OMEP-173 (11:50)
[2024-12-11] MEDS ORDERED: CLON1TAB17 PO (11:50)
[2024-12-11] MEDS ORDERED: IBUP200T46 PO (11:50)
[2024-12-11 11:51] VITALS: TEMP 98.5
[2024-12-11 12:34] LABS: BASO # 0.1 10^3/uL (0.0-0.2); BASO % 0.9 % (0.0-1.0); EOS # 0.1 10^3/uL (0.0-0.5); EOS % 0.8 % (0.0-3.0); HEMATOCRIT 44.3 % (42.0-52.0); HEMOGLOBIN 15.3 g/dl (13.5-17.5); LYMPH # 1.9 10^3/uL (1.5-5.0); LYMPH % 30.3 % (24.0-44.0); MEAN CORPUSCULAR HEMOGLOBIN 30.4 pg (27.0-33.0); MEAN CORPUSCULAR HGB CONC 34.5 g/dl (32.0-36.5); MEAN CORPUSCULAR VOLUME 87.9 fl (80.0-96.0); MONO # 0.6 10^3/uL (0.0-0.8); MONO % 10.1 % (2.0-8.0); NEUTROPHILS # 3.6 10^3/uL (1.5-8.5); NEUTROPHILS % 57.6 % (36.0-66.0); PLATELET COUNT, AUTOMATED 203 10^3/uL (150-450); RED BLOOD COUNT 5.04 10^6/uL (4.30-6.10); WHITE BLOOD COUNT 6.3 10^3/uL (4.0-10.0)
[2024-12-11 12:57] LABS: BLOOD UREA NITROGEN 20 MG/DL (9-23); CALCIUM LEVEL 9.5 MG/DL (8.5-10.1); CARBON DIOXIDE LEVEL 26 MMOL/L (20-31); CHLORIDE LEVEL 106 MMOL/L (98-107); CK-MB VALUE MASS < 1.0 NG/ML (<3.6); GLOMERULAR FILTRATION RATE > 60.0 (>56); GLUCOSE, FASTING 118 MG/DL (60-100); POTASSIUM SERUM 4.5 MMOL/L (3.5-5.1); SODIUM LEVEL 140 MMOL/L (136-145)
[2024-12-11 13:01] LABS: CPK CREATINE PHOSPHOKINASE 95 U/L (46-171); MB/CK RELATIVE INDEX 1.05 (< OR =4)
[2024-12-11] MEDS: clonazePAM 1 MG TAB PO ONE (13:03)
[2024-12-11 13:20] LABS: LIPASE 35 U/L (12-53)
[2024-12-11 13:22] LABS: ALBUMIN 4.2 G/DL (3.2-5.2); ALKALINE PHOSPHATASE 104 U/L (40-129); ALT/SGPT 41 U/L (7.0-40); AST/SGOT 28 U/L (<34); BILIRUBIN,DIRECT 0.5 MG/DL (<0.4); BILIRUBIN,TOTAL 2.1 MG/DL (0.3-1.2); TOTAL PROTEIN 7.5 G/DL (5.7-8.2)
[2024-12-11 13:25] LABS: FREE T4 1.09 NG/DL (0.89-1.76); THYROID STIMULATING HORMONE 2.545 uIU/ML (0.55-4.78)
[2024-12-11 13:46] LABS: CPK CREATINE PHOSPHOKINASE 86 U/L (46-171)
[2024-12-11 13:47] LABS: CK-MB VALUE MASS < 1.0 NG/ML (<3.6); MB/CK RELATIVE INDEX 1.16 (< OR =4)
[2024-12-11] MEDS: KETOROLAC 30 MG/ML 1ML VIAL IV ONE (14:32)
[2024-12-11 15:07] VITALS: O2SAT 97
[2024-12-11] MEDS ORDERED: KETO10TAB PO (15:08)
[2024-12-11 15:15] VITALS: BP 129/87
== END 2024-12-11 15:23 | disposition home or self-care (01) ==
LOC: M ED 11:37
DX: R07.9 Chest pain, unspecified (principal); M79.651 Pain in right thigh; K21.9 Gastro-esophageal reflux disease without esophagitis; E78.5 Hyperlipidemia, unspecified; F41.9 Anxiety disorder, unspecified; Z88.1 Allergy status to other antibiotic agents; Z79.899 Other long term (current) drug therapy
CPT/HCPCS: 71045; 80047; 80048; 80076; 82550; 82553; 83690; 84439; 84443; 84484; 85025; 85379; 93005; 93041; 93970; 94760; 96374; 99285; J1885